=== PATIENT | female | born 1995 | race Caucasian/White ===

== ENCOUNTER 2021-07-01 09:35 | Emergency (ER) | payer SELFPAY ==
[2021-07-01 09:56] VITALS: BP 119/83; PULSE 116; RESP 20; TEMP 36.8; O2SAT 95; BMI 26.6
--- NOTE | 2021-07-01 10:05 | XR_ITS ---
PROCEDURE: XR CHEST 2V CLINICAL HISTORY: SOA COMPARISON: No exams were available for comparison FINDINGS: The cardiomediastinal silhouette and pulmonary vascularity are within normal limits. The lungs are clear without infiltrates, suspicious nodules, or pleural effusions. No acute bony abnormalities. Mild thoracic curvature convex right. IMPRESSION: No acute findings. Dictated by: Joshua Bland MD 07/01/2021 11:02 Joshua Bland MD in [place] 07/01/2021 11:02
--- NOTE | 2021-07-01 10:18 | HMH.EDUTC ---
[facility] [place] Disposition Clinical Impression: Shortness of breath Disposition: Left Against Medical Advice Condition on Discharge: Fair Referrals: Provider,Referral, [Primary Care Provider] - As needed Time of Disposition: 11:09 Medical Decision Making - Chris Inquiry Pt receiving controlled substance: No Chris was queried for this patient: No Vital Signs: 07/01/21 09:56 07/01/21 11:31 Temperature 98.2 F 0 F L Temperature Source Oral Pulse Rate 0 L Pulse Rate [Left] 116 H Respiratory Rate 20 0 L Blood Pressure 0/0 L Blood Pressure [Right Arm] 119/83 Blood Pressure Mean [Right Arm] 95 02 Sat by Pulse Oximetry 95 - Radiology Data #1 Image(s): Chest Image Reviewed: Yes I have reviewed radiologist's interpretation IMPRESSION: No acute findings. Medical Decision Narrative: Due to recently having baby and feeling of tightness in chest recommended transfer to the ED for further work up and evaluation and patient refused at this time State that she wants to get the xray done first before she will do any testing Patient educated on risks and still declined transfer until xray is completed After xray completed again spoke with patient and recommended transfer to the ED and spoke with her and about concern for PE and advised he had to speak with his father left the room and returned and declined transfer and further testing Spoke with patient and she agreed asked for disk and she wanted to leave with Again expressed concern and need for further testing and risks even and patient declined and signed AMA [facility] [place] HPI - General Stated complaint: lung congestion Time Seen by Provider: 07/01/21 10:18 Mode of Arrival: Ambulatory Source of Information: Patient Limitations: No Limitations Description of Symptoms (Recalled from Triage Doc. by RN): pt c/o pain with deep breathing and SOA x2 wks. pt requests a CXR. HEENT Symptoms (Recalled from RN notes): No Resp Symptoms (Recalled from RN notes): Yes (SOA and painful deep breathing) Skin Symptoms (Recalled from RN notes): No MS Symptoms (Recalled from RN notes): No Functional Status (Recalled from RN notes): wnl - History of Present Illness Provider Complaint: Patient states that she had a baby about 3 weeks ago State that for the last couple of weeks she has been having pain in her chest when she takes a deep breath and feeling like she cannot get a good breath States that at times it feels like pressure on her chest. States that it has come and gone and for the last couple of days it has got worse and she feels some tightness in her chest so she wanted to come in and get a chest xray and have it printed out for her - Related Data Allergies Allergy/AdvReac Type Severity Reaction Status Date / Time No Known Allergies Allergy Verified 07/01/21 10:05 - Worker's Comp Is this a Worker's Comp case?: No [place] History - Hepatitis A Screen Drug use history?: No High risk sexual behaviors?: No History of sexually transmitted infection?: No Currently employed?: No Childcare worker?: No Do you have indoor plumbing?: Yes Do you have electricity?: Yes Attestation statement:: This patient has been screened for Hepatitis A risk factors. I have reviewed the patient's past medical history: Yes ROS Obtained: Yes All systems reviewed & no additional complaints, Yes Systems reviewed as appropriate & no additional complaints - Constitutional Constitutional: Reports system reviewed and no additional complaints, except as docu, Denies body ache, Denies chills, Denies fever(s) - ENT Ears, Nose, Mouth, and Throat: Reports system reviewed and no additional complaints, except as docu - Cardiovascular Cardiovascular: Reports system reviewed and no additional complaints, except as docu - Respiratory Respiratory: Reports system reviewed and no additional complaints, except as docu, Reports pain with breathing, Reports other (Reports tightness/p
--- NOTE | 2021-07-01 10:47 | PC.NURSE ---
0912 pt refuses transfer to the ER. pt states she wants a CXR before she does anything.
--- NOTE | 2021-07-01 11:02 | PC.NURSE ---
pt is strongly encouraged to go to the ER. pt is educated on risks and symptoms. pts says he has to consult with his father. pts refuses for the pt to go to the ER. again both the Pt and her are informed of the risks of leaving.
--- NOTE | 2021-07-01 11:10 | PC.NURSE ---
1100 M. Genaro BONE and myself return to the room. the provider once again explains the concerns and reasons she believes the pt should go through the ER. provider explains the risks of what may happen if the pt leaves. the pts is adamant that the pt is not going to the ER and that the pt is going home. pt signs an AMA form at this time.
[2021-07-01 11:31] VITALS: BP 0/0; PULSE 0; RESP 0; TEMP -17.7; TEMP 0
== END 2021-07-01 11:31 | disposition left against medical advice (07) ==
PROVIDERS: Emergency Provider Nurse Practitioner
DX: R06.02 Shortness of breath (principal); R09.81 Nasal congestion
CPT/HCPCS: 71046; 99202; G0463